=== PATIENT | female | born 1980 | race Caucasian/White ===

== ENCOUNTER 2020-11-01 06:57 | Inpatient (IN) | payer OTHER, MEDICAID ==
[2020-10-25 09:49] LABS: BASOPHILS # (AUTO) 0.1 X10'3 (0-0.2); EOSINOPHILS # (AUTO) 0.2 X10'3 (0-0.9); EOSINOPHILS % (AUTO) 2.7 % (0-6); LYMPHOCYTES # (AUTO) 2.3 X10'3 (1.1-4.8); LYMPHOCYTES % (AUTO) 33.6 % (21-51); MEAN CORPUSCULAR HGB CONC 32.9 g/dL (33.0-36.5); MEAN CORPUSCULAR VOLUME 88.2 FL (78-98); MEAN PLATELET VOLUME 7.3 FL (7.4-10.4); MONOCYTES # (AUTO) 0.6 X10'3 (0-0.9); MONOCYTES % (AUTO) 9.2 % (2-12); NEUTROPHILS # (AUTO) 3.7 X10'3 (1.8-7.7); NEUTROPHILS % (AUTO) 53.5 % (42-75); PRE OP HEMATOCRIT 40.1 % (35.0-45.0); PRE OP HEMOGLOBIN 13.2 g/dL (12.0-16.0); PRE OP PLATELET COUNT 350 X10'3 (140-440); RED BLOOD COUNT 4.54 X10'6 (4.20-5.60); RED CELL DISTRIBUTION WIDTH 13.4 % (11.5-14.5)
[2020-10-25 10:04] LABS: HCG SERUM QL NEGATIVE
[2020-10-25 10:06] LABS: ALBUMIN 3.3 G/DL (3.4-5.0); ALKALINE PHOSPHATASE 41 IU/L (46-116); BLOOD UREA NITROGEN 16 MG/DL (7-18); BUN/CREATININE RATIO 22.5 (6.6-38.0); CALCIUM 8.4 MG/DL (8.5-10.1); CHLORIDE 107 MMOL/L (99-107); CREATININE 0.71 MG/DL (0.40-0.90); PRE OP ALT 18 U/L (30-65); PRE OP ANION GAP 8 (8-16); PRE OP AST 15 U/L (10-37); PRE OP BILIRUB, TOTAL 0.6 MG/DL (0.0-1.0); PRE OP GLUCOSE 83 MG/DL (70-104); PRE OP POTASSIUM 3.6 MMOL/L (3.4-5.1); PRE OP SODIUM 144 MMOL/L (135-145); TOTAL CARBON DIOXIDE 29.5 MMOL/L (24-32); TOTAL PROTEIN 6.7 G/DL (6.4-8.2); eGFR 90 ML/MIN
[~2020-11-01] VITALS: Ht 160 cm; Wt 68.0 kg
[2020-11-01] VITALS (15 sets, daily range): BP systolic 140–185; BP diastolic 84–112
[~2020-11-01 06:57] MED LIST: FERR236T3 PO; HYDR12.5 PO; NORE1TAB59 PO; PANT20TA18 PO; TELM80TA2 PO; ceFOXitin 2GM-NS 100mL ADDvant 100 ML IV ONE; famotidine 20mg tablet PO ONE; ringers solution, lacted 1,000 ML IV SCH
[2020-11-01] MEDS ORDERED: ondansetron/PF 4mg/2ml inj IV PRN ×2 (07:40→12:20)
[2020-11-01] MEDS ORDERED: ringers solution, lacted 1,000 ML IV SCH (07:40)
[2020-11-01] MEDS ORDERED: meperidine/PF 25mg/ml syringe IV PRN ×2 (07:40)
[2020-11-01] MEDS ORDERED: proCHLORperazine 10 MG/2 ml inj IV PRN ×2 (07:40→19:45)
[2020-11-01] MEDS ORDERED: morphine 4 MG/ML inj SYRINge IV PRN (07:40)
[2020-11-01] MEDS ORDERED: LIDOcaine 1% W/epiNEPHrine 1:200,000 10ml vial ONE (08:29)
[2020-11-01] MEDS ORDERED: ceFAZolin 1000mg inj ONE (08:29)
[2020-11-01] MEDS ORDERED: midazolam 1 mg/ML 2ml injection ONE (09:39)
[2020-11-01] MEDS ORDERED: fentaNYL /PF 50mcg/ml 5ml ampule ONE (09:39)
[2020-11-01] MEDS ORDERED: propofol inj 20 ML IV ONE (09:41)
[2020-11-01] MEDS ORDERED: rocuronium 10mg/ml inj IV ONE (09:45)
[2020-11-01] MEDS ORDERED: fluoroscein sod 10% (100mg/ml) 5ml vial ONE (11:15)
[2020-11-01] MEDS ORDERED: dexamethasone sod phosphate 4mg/ml inj. ONE (11:15)
[2020-11-01] MEDS ORDERED: ondansetron/PF 4mg/2ml inj ONE (11:27)
[2020-11-01] MEDS ORDERED: glycopyrrolate 0.2mg/ml inj ONE (11:27)
[2020-11-01] MEDS ORDERED: neostigmine methylsulfate 1 MG/ML 10ml vial ONE (11:28)
--- NOTE | 2020-11-01 12:07 | NUR ---
Patient arrived via hospital bed from [place] dressing cdi. elevated bp, md aware. on 10L mask. left wrist 20g PIV with LR at 100ml/hr.
[2020-11-01] MEDS: meperidine/PF 25mg/ml syringe IV PRN ×2 (12:12→12:24)
[2020-11-01] MEDS ORDERED: naloxone 0.4 mg/ml inj IV PRN (12:20)
[2020-11-01] MEDS ORDERED: temazepam 15mg capsule PO PRN (12:20)
[2020-11-01] MEDS ORDERED: oxyCODONE/APAP 5-325mg tablet PO PRN ×2 (12:20)
[2020-11-01] MEDS ORDERED: diphenhydrAMINE 50 mg/ml inj IV PRN (12:20)
[2020-11-01] MEDS ORDERED: normal saline 500ML IV soln IV PRN (12:20)
[2020-11-01] MEDS ORDERED: mag hydrox/Alum hydrox/simeth 30ml oral suspension PO PRN (12:20)
[2020-11-01] MEDS ORDERED: LORazepam 2 mg/ml vial IV PRN (12:20)
[2020-11-01] MEDS: ringers solution, lacted 1,000 ML IV SCH (12:20)
[2020-11-01] MEDS: morphine 2 MG/ML inj. syringe IV PRN ×3 (12:38→13:48)
[2020-11-01] MEDS: simethicone 80mg chew tab PO SCH ×2 (13:00→17:10)
--- NOTE | 2020-11-01 13:47 | NUR ---
Patient is having frequent spasms not controlled by morphine, dilaudid nor demerol. Noemy is the nurse report was given to and is assuming care to address spasms to urethra. Patient denies cramping, as original complaint. Dressings and pad CDI. Hypertensive, MD aware of high bp. Patient transfer to floor was delayed due to nursing shortage on surgical floor. Care transferred to Noemy. Room 350A.
[2020-11-01] MEDS: HYDROmorph./NS 0.2 mg/ml CADD 100 ML IV SCH ×6 (14:01→23:00)
--- NOTE | 2020-11-01 14:21 | NUR ---
Pt. received in room. in 11/18 bladder pain. SBP 178. Dilaudid already used. Will give Tordol and called Wallace. Left voicemail.
[2020-11-01] MEDS: ketorolac trometh. 30mg/ml inj. IV PRN (14:25)
--- NOTE | 2020-11-01 14:25 | NUR ---
Assessed CADD pump brought up by recovery. Settings set with low residual of 17.3mg and concentration setting of .1mg/1ml. Dilaudid medication was a full container of 20mg/100ml. Notified Charge who reviewed settings, called MD Wallace and notified pt. of medication error. Spoke to pharmacy. Wasted current CADD and administer new CADD with ordered settings. Will continue to monitor for any ASE.
[2020-11-01] MEDS: CADD PCA waste documentation MC PRN (15:00)
--- NOTE | 2020-11-01 18:50 | NUR ---
Gave report to Esther Santana RN.
--- NOTE | 2020-11-01 18:55 | NUR ---
Patient in room [facility]. I have received report from JONATAN ROGEL and had the opportunity to ask questions and assume patient care.
--- NOTE | 2020-11-01 19:21 | NUR ---
Patient came to floor with Dilaudid Cadd set up from [facility]. Patients Dilaudid Cadd setting showed as follows Res 17.3 Concentration 1mg/ml, Demand of 0.2mg, Give 7 attempts 47 , Given 1.40mg. Waste from this Cadd: 105ml's of Dilaudid medication wasted, per Cadd machine 1.40 mg at currents settings given. Campbell the pharmacist aware and agrees with charting All medication wasted with Noemy Fisher RN New Cadd settings : Patients Dilaudid Cadd was taken down and new Dilaudid cadd was started as follows. Concentration 0.2mg / ml, Demand 0.2mg, Q10 min, Give 0, Attempts 0 Res 98.7
[2020-11-01] MEDS ORDERED: proMETHazine 25mg rectal suppository RC PRN (19:45)
[2020-11-01] MEDS: docusate sod 100mg capsule PO SCH ×2 (20:00→20:21)
[2020-11-02] VITALS: BP 158/92
[2020-11-02] MEDS: ringers solution, lacted 1,000 ML IV SCH ×2 (00:33→04:20)
[2020-11-02] MEDS: HYDROmorph./NS 0.2 mg/ml CADD 100 ML IV SCH ×8 (01:00→15:00)
--- NOTE | 2020-11-02 06:30 | NUR ---
Problems reprioritized. Patient report given, questions answered & plan of care reviewed with MARICHUY ROGEL.
--- NOTE | 2020-11-02 06:45 | NUR ---
Patient in room [facility] 350A. I have received report from JOSEPH RUIZ RN and had the opportunity to ask questions and assume patient care.
[2020-11-02 06:59] LABS: BASOPHILS % (AUTO) 0.4 % (0-1); EOSINOPHILS % (AUTO) 0 % (0-6); HEMATOCRIT 31.1 % (35.0-45.0); HEMOGLOBIN 10.7 g/dl (12.0-16.0); LYMPHOCYTES # (AUTO) 2.1 X10'3 (1.1-4.8); LYMPHOCYTES % (AUTO) 17.9 % (21-51); MEAN CORPUSCULAR HGB CONC 34.5 g/dL (33.0-36.5); MEAN CORPUSCULAR VOLUME 87.1 FL (78-98); MEAN PLATELET VOLUME 7.4 FL (7.4-10.4); MONOCYTES % (AUTO) 8.3 % (2-12); NEUTROPHILS # (AUTO) 8.8 X10'3 (1.8-7.7); NEUTROPHILS % (AUTO) 73.4 % (42-75); PLATELET COUNT 319 X10'3 (140-440); RED BLOOD COUNT 3.57 X10'6 (4.20-5.60); RED CELL DISTRIBUTION WIDTH 13.3 % (11.5-14.5)
[2020-11-02 07:00] VITALS: BP 169/99
[2020-11-02 07:13] LABS: ALBUMIN 2.7 G/DL (3.4-5.0); ANION GAP 0 (8-16); BLOOD UREA NITROGEN 12 MG/DL (7-18); BUN/CREATININE RATIO 18.8 (6.6-38.0); CALCIUM 8.2 MG/DL (8.5-10.1); CHLORIDE 104 MMOL/L (99-107); CREATININE 0.64 MG/DL (0.40-0.90); GLUCOSE 98 MG/DL (70-104); SODIUM 134 MMOL/L (135-145); TOTAL CARBON DIOXIDE 30.3 MMOL/L (24-32); eGFR > 90 ML/MIN
--- NOTE | 2020-11-02 08:05 | NUR ---
CRITICAL POTASSIUM 3.0, CALL DR SMITH AWAITING CALL BACK
[2020-11-02] MEDS ORDERED: potassium Cl 20 mEq SR tablet PO STA (08:34)
[2020-11-02] MEDS: docusate sod 100mg capsule PO SCH ×2 (10:32→20:16)
[2020-11-02] MEDS: simethicone 80mg chew tab PO SCH ×3 (10:32→20:16)
[2020-11-02 11:00] VITALS: BP 163/90
[2020-11-02] MEDS: CADD PCA waste documentation MC PRN (15:18)
--- NOTE | 2020-11-02 18:45 | NUR ---
Problems reprioritized. Patient report given, questions answered & plan of care reviewed with JUAN F ESTRADA.
[2020-11-02 20:00] VITALS: BP 178/98
[2020-11-02] MEDS: ketorolac trometh. 30mg/ml inj. IV PRN (20:16)
[2020-11-02] MEDS: pantoprazole 40mg Tablet.DR PO SCH (20:16)
[2020-11-02 23:46] VITALS: BP 178/98
[2020-11-03] VITALS: BP 145/95
--- NOTE | 2020-11-03 06:30 | NUR ---
Problems reprioritized. Patient report given, questions answered & plan of care reviewed with Giulia ROGEL. Addendum: 11/03/20 at 0630 by Aleisha Jackson RN Amended: Links added.
[2020-11-03 07:00] VITALS: BP 154/101
[2020-11-03] MEDS: ketorolac trometh. 30mg/ml inj. IV PRN (07:19)
[2020-11-03] MEDS: docusate sod 100mg capsule PO SCH (07:19)
[2020-11-03] MEDS: simethicone 80mg chew tab PO SCH (07:20)
[2020-11-03] MEDS: pantoprazole 40mg Tablet.DR PO SCH (07:20)
[2020-11-03] MEDS ORDERED: losartan 50mg tablet PO SCH (08:00)
--- NOTE | 2020-11-03 09:48 | NUR ---
Discharge instructions given to patient, patient verbalized understanding of all instructions given to her. Peripheral IV catheter removed, tip intact. Instructed patient to ensure she has all her belongings with her before leaving the hospital. Patient said that she was instructed no heavy lifting >10lbs. Patient advised to follow the specific instructions by Dr. Wallace like when to follow and that she will have to call the office to confirm appointment
== END 2020-11-03 10:02 | disposition home or self-care (01) | DRG 743 ==
LOC: PAS IN 06:57 → UNDOADMIN 06:57 → PAS IN 12:20 → SUR 3N 14:10
PROVIDERS: ADMIT Obstetrics & Gynecology; ATTEND Obstetrics & Gynecology
PROC: 0UT70ZZ Resection of Bilateral Fallopian Tubes, Open Approach (ICD-10-PCS; 2020-11-01)
PROC: 0TJB8ZZ Inspection of Bladder, Via Natural or Artificial Opening Endoscopic (ICD-10-PCS; 2020-11-01)
PROC: 0USG0ZZ Reposition Vagina, Open Approach (ICD-10-PCS; 2020-11-01)
PROC: 0TSD0ZZ Reposition Urethra, Open Approach (ICD-10-PCS; 2020-11-01)
PROC: 0UT90ZZ Resection of Uterus, Open Approach (ICD-10-PCS; principal; 2020-11-01 09:32)
DX: D25.2 Subserosal leiomyoma of uterus (principal); N39.3 Stress incontinence (female) (male); Z20.822 Contact with and (suspected) exposure to COVID-19
CPT/HCPCS: Z7506; Z7508; 36415; 80048; 80053; 82948; 84132; 84703; 85025; 86885; 86900; 86901; 87081; 93005; A4355; A4618; A6250; A7000; C1758; C1771; G0378; J0690; J0780; J1100; J1170; J1885; J2175; J2250; J2270; J2405; J2704; J2710; J3010; J3490; J7120; U0003; U0005